=== PATIENT | male | born 1985 | race African-American/Black ===

== ENCOUNTER 2017-01-27 17:51 | Emergency (ER) | payer SELFPAY ==
--- NOTE | ~2017-01-27 | EKG ---
PATIENT: OREN CALDERA UNIT #: [id number] Ventricular Rate: 83 BPM Atrial Rate: 83 BPM P-R Interval: 162 ms QRS Duration: 78 ms Q-T Interval: 358 ms QTC Calculation(Bezet): 420 ms P Otter: 61 degrees Calculated R Otter: 12 degrees Calculated T Otter: 49 degrees Diagnosis Line: Normal sinus rhythm Diagnosis Line: Normal ECG Diagnosis Line: Diagnosis Line: Confirmed by ASAEL ARZATE MD ([id number]) on Diagnosis Line: 01/28/2017 3:45:46 PM INTERPRETING MD: HUEY KENNEDY
[~2017-01-27 17:51] MED LIST: IBUPROFEN PO; KEFLEX PO
[2017-01-27 19:40] LABS: BASOPHIL# 0.1 X10e3 (0-0.3); BASOPHIL% 1.4 % (0-2.5); EOSINOPHIL# 0.2 X10e3 (0-0.7); EOSINOPHIL% 2.6 % (0.0-7.0); HEMATOCRIT 43.4 % (38.0-50.0); HEMOGLOBIN 14.4 gm/dL (13.0-16.0); LYMPHOCYTE% 32.5 % (17.0-45.0); MEAN CELL VOLUME 86.6 FL (83-96); MEAN CORPUSCULAR HEMOGLOBIN 28.7 PG (28-34); MEAN CORPUSCULAR HGB CONC 33.1 g/dL (30-36); MEAN PLATELET VOLUME 8.3 FL (6.5-11.5); MONOCYTE# 0.5 X10e3 (0-1.0); MONOCYTE% 8.4 % (3.0-12.0); NEUTROPHIL# 3.3 X10e3 (1.5-7.1); NEUTROPHIL% 55.1 % (40-75); PLATELET COUNT 289 X10e3 (140-420); RED CELL DISTRIBUTION WIDTH 14.1 % (11.0-15.5); WHITE BLOOD COUNT 6.1 X10e3 (4.0-10.5)
[2017-01-27 19:42] LABS: DIFF IND NO
[2017-01-27 20:16] LABS: ALBUMIN SERUM 4.2 g/dL (3.5-5.0); BILIRUBIN, DIRECT 0.1 mg/dL (0.0-0.2); BILIRUBIN,INDIRECT 0.3 mg/dL (0.0-0.9); BILIRUBIN,TOTAL 0.4 mg/dL (0.2-2.0); BUN/CREATININE RATIO 12.22; CALCIUM SERUM 8.6 mg/dL (8.4-10.2); CREATININE SERUM 0.9 mg/dL (0.6-1.4); GLOM FILT RATE Estimated 132.4 mL/min (>60); POTASSIUM 3.9 mmol/L (3.5-5.1); PROTEIN TOTAL SERUM 7.4 g/dL (6.0-8.3)
== END 2017-01-27 21:36 | disposition home or self-care (01) ==
LOC: CED 17:51
PROVIDERS: Emergency Medicine
DX: R06.6 Hiccough (principal); Z88.0 Allergy status to penicillin; Z79.899 Other long term (current) drug therapy
CPT/HCPCS: 36415; 80048; 80076; 85025; 93005; 96360; 99284; J2765